=== PATIENT | male | born 1965 | race Asian ===

== ENCOUNTER 2018-07-06 11:34 | Inpatient (IN) | payer OTHER ==
[~2018-07-06] VITALS: Ht 172.7 cm; Wt 68.0 kg
[2018-07-06 11:34] VITALS: BP_SYST 148
[2018-07-06] MEDS ORDERED: ASPIRIN 81 MG TAB.CHEW PO ONE (11:45)
[2018-07-06] MEDS ORDERED: DIPHENHYDRAMINE INJ 50 MG/ML VIAL IVP ONE (11:45)
[2018-07-06] MEDS ORDERED: KETOROLAC TROMETHAMINE 15 MG VIAL IVP ONE (11:45)
[2018-07-06] MEDS ORDERED: LORazepam 2 MG/ML VIAL (FOR ER USE) IVP ONE (11:45)
[2018-07-06 11:54] LABS: BASOPHILS # (AUTO) 0.1 K/uL (0.0-0.2); BASOPHILS % (AUTO) 0.9 % (0.0-2.0); EOSINOPHILS # (AUTO) 0.1 K/uL (0.0-0.4); EOSINOPHILS % (AUTO) 0.7 % (0.0-4.0); HEMATOCRIT 44.3 % (36-54); HEMOGLOBIN 15.3 g/dL (14.0-18.0); LYMPHOCYTES # (AUTO) 1.2 K/uL (1.0-5.5); LYMPHOCYTES % (AUTO) 15.1 % (20.5-51.5); MEAN CORPUSCULAR HEMOGLOBIN 33 pg (27-31); MEAN CORPUSCULAR HGB CONC 34 % (32-36); MEAN CORPUSCULAR VOLUME 97 fL (79.0-98.0); MONOCYTES # (AUTO) 0.3 K/uL (0.0-1.0); MONOCYTES % (AUTO) 4.2 % (1.7-9.3); NEUTROPHILS # (AUTO) 6.4 K/uL (1.8-7.7); NEUTROPHILS % (AUTO) 79.1 % (40.0-70.0); PLATELET COUNT (AUTO) 296 K/uL (130-430); RED BLOOD CELL COUNT(AUTO) 4.59 MIL/uL (4.2-6.2); WHITE BLOOD COUNT (AUTO) 8.1 K/uL (4.8-10.8)
[2018-07-06 12:12] LABS: PROTHROMBIN TIME 9.9 SECS (9.5-12.5)
[2018-07-06 12:16] LABS: CREATININE 0.79 mg/dL (0.55-1.30); POTASSIUM 3.4 mmol/L (3.5-5.1)
[2018-07-06 12:20] LABS: ALBUMIN 4.5 g/dL (3.4-4.8); TOTAL BILIRUBIN 0.6 mg/dL (0.0-1.0)
[2018-07-06] MEDS ORDERED: fentaNYL CITRATE/PF 100 MCG/2 ML AMP IVP ONE (13:00)
[2018-07-06] MEDS ORDERED: LEVE500T53 PO (13:17)
[2018-07-06] MEDS ORDERED: TRAZ-123 PO (13:17)
[2018-07-06] MEDS ORDERED: BENZ1TAB7 PO (13:17)
[2018-07-06] MEDS ORDERED: CYCL-10 PO (13:17)
[2018-07-06] MEDS ORDERED: LORA1TAB PO (13:17)
[2018-07-06] MEDS ORDERED: GABA-531 PO (13:17)
[2018-07-06 13:41] VITALS: BP_SYST 142
[2018-07-06 16:00] VITALS: BP_SYST 108
[2018-07-06] MEDS: ALPRAZolam 0.25 MG TABLET PO PRN ×2 (16:22→23:09)
[2018-07-06] MEDS: NITROGLYCERIN 0.4 MG TAB.SUBL SL PRN ×3 (18:18→18:28)
[2018-07-06 20:00] VITALS: BP_SYST 112
[2018-07-06] MEDS: KETOROLAC TROMETHAMINE 15 MG VIAL IVP PRN (21:35)
[2018-07-06] MEDS ORDERED: QUEtiapine FUMARATE 100 MG TABLET PO ONE (22:15)
[2018-07-07 00:51] VITALS: BP_SYST 139
[2018-07-07] MEDS: KETOROLAC TROMETHAMINE 15 MG VIAL IVP PRN ×2 (03:23→11:51)
[2018-07-07 03:45] VITALS: BP_SYST 119
[2018-07-07] MEDS: ALPRAZolam 0.25 MG TABLET PO PRN ×2 (07:08→16:26)
[2018-07-07 07:55] VITALS: BP_SYST 118
[2018-07-07 08:08] LABS: BASOPHILS % (AUTO) 0.6 % (0.0-2.0); EOSINOPHILS # (AUTO) 0.1 K/uL (0.0-0.4); EOSINOPHILS % (AUTO) 1.4 % (0.0-4.0); HEMATOCRIT 42.6 % (36-54); HEMOGLOBIN 14.4 g/dL (14.0-18.0); LYMPHOCYTES # (AUTO) 1.5 K/uL (1.0-5.5); LYMPHOCYTES % (AUTO) 23.1 % (20.5-51.5); MEAN CORPUSCULAR HEMOGLOBIN 33 pg (27-31); MEAN CORPUSCULAR HGB CONC 34 % (32-36); MEAN CORPUSCULAR VOLUME 97 fL (79.0-98.0); MONOCYTES # (AUTO) 0.4 K/uL (0.0-1.0); MONOCYTES % (AUTO) 6.7 % (1.7-9.3); NEUTROPHILS # (AUTO) 4.5 K/uL (1.8-7.7); NEUTROPHILS % (AUTO) 68.2 % (40.0-70.0); PLATELET COUNT (AUTO) 225 K/uL (130-430); WHITE BLOOD COUNT (AUTO) 6.5 K/uL (4.8-10.8)
[2018-07-07 08:18] LABS: ANION GAP 9 (5-15); CALCIUM 9.1 mg/dL (8.4-11.0); CHLORIDE 104 mmol/L (98-107); GLUCOSE 108 mg/dL (70-99); POTASSIUM 3.6 mmol/L (3.5-5.1); SODIUM SERUM 140 mmol/L (136-145); UREA NITROGEN, BLOOD 12 mg/dL (8-21)
[2018-07-07 08:28] LABS: GFR AFRICAN AMERICAN 151 mL/min (>90)
[2018-07-07] MEDS ORDERED: ENOXAPARIN SODIUM 40 MG/0.4 ML SYRINGE SUBCUT SCH (09:00)
[2018-07-07] MEDS ORDERED: traMADol HCL HCL 50 MG TABLET (ULTRAM) PO PRN (10:00)
[2018-07-07 12:20] VITALS: BP_SYST 122
[2018-07-07 16:43] VITALS: BP_SYST 115
[2018-07-07 16:53] VITALS: BP_SYST 132
[2018-07-07] MEDS ORDERED: QUEtiapine FUMARATE 100 MG TABLET PO SCH (21:00)
== END 2018-07-07 18:17 | disposition short-term general hospital (02) | DRG 206 ==
LOC: SED 11:34 → STU 13:02
PROVIDERS: ADMIT Family Medicine; ATTEND Family Medicine
DX: M94.0 Chondrocostal junction syndrome [Tietze] (principal); F41.9 Anxiety disorder, unspecified; G40.909 Epilepsy, unspecified, not intractable, without status epilepticus; G25.81 Restless legs syndrome; F32.9 Major depressive disorder, single episode, unspecified; G24.9 Dystonia, unspecified; F29 Unspecified psychosis not due to a substance or known physiological condition; Z88.8 Allergy status to other drugs, medicaments and biological substances
CPT/HCPCS: 36415; 71045; 80048; 80053; 82550-TC; 83880; 84484; 85025; 85610-TC; 85730-TC; 87081; 93005; 96374; 96375; 99291; J1200; J1650; J1885; J2060; J3010

== ENCOUNTER 2018-07-28 08:35 | Inpatient (IN) | payer OTHER ==
[~2018-07-28] VITALS: Ht 172.7 cm; Wt 68.0 kg
[~2018-07-28 08:35] MED LIST: LORA1TAB PO; QUET200T5 PO
[2018-07-28 08:44] VITALS: BP_SYST 127
[2018-07-28] MEDS ORDERED: ASPIRIN 325 MG TABLET PO ONE (09:00)
[2018-07-28] MEDS ORDERED: LORazepam 1 MG TABLET PO ONE (09:00)
[2018-07-28] MEDS ORDERED: MORPHINE 4 MG/ML INJ. SYRINGE IVP ONE (09:30)
[2018-07-28] MEDS ORDERED: NITROGLYCERIN 1 INCH (GM) OINT. TP ONE (09:30)
[2018-07-28 09:35] LABS: BARBITURATE, URINE NEGATIVE (NEG <=200); BENZODIAZEPINE, URINE NEGATIVE (NEG <=150); CANNABINOID, URINE POSITIVE (NEG <=50); COCAINE, URINE NEGATIVE (NEG <=150); METHAMPHETAMINES SCREEN,URINE NEGATIVE (NEG <=500); OPIATE, URINE NEGATIVE (NEG <=100); PHENCYCLIDINE SCREEN,URINE NEGATIVE (NEG <=25); UR TRICYCLIC ANTIDEPRESSANTS NEGATIVE (NEG <=300); URINE AMPHETAMINE NEGATIVE (NEG <=500); URINE METHADONE NEGATIVE (NEG <=200); URINE OXYCODONE SCREEN NEGATIVE (NEG <=100); URINE PROPOXYPHENE SCREEN NEGATIVE (NEG <=300)
[2018-07-28 09:36] LABS: CREATININE 0.77 mg/dL (0.55-1.30); POTASSIUM 3.6 mmol/L (3.5-5.1)
[2018-07-28 09:40] LABS: PROTHROMBIN TIME 9.7 SECS (9.5-12.5)
[2018-07-28 09:41] LABS: ALBUMIN 3.6 g/dL (3.4-4.8); TOTAL BILIRUBIN 0.3 mg/dL (0.0-1.0)
[2018-07-28 10:50] VITALS: BP_SYST 140
[2018-07-28 11:15] LABS: HEMATOCRIT 39.1 % (36-54); HEMOGLOBIN 13.1 g/dL (14.0-18.0); LYMPHOCYTES % (AUTO) 24.3 % (20.5-51.5); MEAN CORPUSCULAR HEMOGLOBIN 33 pg (27-31); MEAN CORPUSCULAR HGB CONC 33 % (32-36); MEAN CORPUSCULAR VOLUME 97 fL (79.0-98.0); MONOCYTES % (AUTO) 6.9 % (1.7-9.3); NEUTROPHILS % (AUTO) 66.1 % (40.0-70.0); PLATELET COUNT (AUTO) 244 K/uL (130-430); RED BLOOD CELL COUNT(AUTO) 4.01 MIL/uL (4.2-6.2); RED CELL DISTRIBUTION WIDTH 12.5 % (9.0-15.0); WHITE BLOOD COUNT (AUTO) 5.8 K/uL (4.8-10.8)
[2018-07-28 11:16] LABS: EOSINOPHILS # (AUTO) 0.2 K/uL (0.0-0.4); EOSINOPHILS % (AUTO) 2.7 % (0.0-4.0); LYMPHOCYTES # (AUTO) 1.4 K/uL (1.0-5.5); MONOCYTES # (AUTO) 0.4 K/uL (0.0-1.0); NEUTROPHILS # (AUTO) 3.8 K/uL (1.8-7.7)
[2018-07-28] MEDS ORDERED: LORazepam 1 MG TABLET PO PRN (13:00)
[2018-07-28] MEDS: LORazepam 1 MG TABLET PO PRN ×2 (13:10→22:04)
[2018-07-28] MEDS ORDERED: ASPIRIN 81 MG TAB.CHEW PO ONE (13:15)
[2018-07-28] MEDS: NITROGLYCERIN 0.4 MG TAB.SUBL SL PRN ×3 (15:40→15:50)
[2018-07-28 16:42] VITALS: BP_SYST 127
[2018-07-28] MEDS ORDERED: QUEtiapine FUMARATE 200 MG TAB.SR.24H PO SCH ×2 (18:00→21:00)
[2018-07-28] MEDS ORDERED: IBUPROFEN 400 MG TABLET PO PRN (20:00)
[2018-07-28 20:55] VITALS: BP_SYST 134
[2018-07-28] MEDS: CYCLOBENZAPRINE HCL 10 MG TABLET (FLEXERIL) PO SCH (21:08)
[2018-07-28] MEDS: IBUPROFEN 800 MG TABLET PO PRN (21:09)
[2018-07-29 00:11] VITALS: BP_SYST 133
[2018-07-29 02:01] LABS: CKMB RELATIVE INDEX 1.7 (0.0-2.9); CREATINE KINASE MB 9.4 ng/mL (0-3.6)
[2018-07-29] MEDS: IBUPROFEN 800 MG TABLET PO PRN (08:03)
[2018-07-29] MEDS: CYCLOBENZAPRINE HCL 10 MG TABLET (FLEXERIL) PO SCH (08:26)
[2018-07-29] MEDS ORDERED: ASPIRIN 81 MG TAB.CHEW PO SCH (09:00)
[2018-07-29] MEDS ORDERED: ENOXAPARIN SODIUM 40 MG/0.4 ML SYRINGE SUBCUT SCH (09:00)
[2018-07-29] MEDS ORDERED: IBUPROFEN 800 MG TABLET PO PRN (09:15)
[2018-07-29] MEDS: LORazepam 1 MG TABLET PO PRN (09:20)
[2018-07-29 10:42] VITALS: BP_SYST 112
[2018-07-29 13:40] VITALS: BP_SYST 108
== END 2018-07-29 14:47 | disposition home or self-care (01) | DRG 206 ==
LOC: SED 08:35 → STU 10:05
PROVIDERS: ADMIT Family Medicine; ATTEND Family Medicine
DX: M94.0 Chondrocostal junction syndrome [Tietze] (principal); I20.9 Angina pectoris, unspecified; F41.9 Anxiety disorder, unspecified; F32.9 Major depressive disorder, single episode, unspecified; G40.909 Epilepsy, unspecified, not intractable, without status epilepticus; F12.90 Cannabis use, unspecified, uncomplicated; Z88.8 Allergy status to other drugs, medicaments and biological substances; Z79.899 Other long term (current) drug therapy
CPT/HCPCS: 36415; 71045; 80053; 80307; 82550-TC; 82553-TC; 83880; 84484; 85025; 85379; 85610-TC; 85730-TC; 87081; 96374; 99291; J1650; J2270

== ENCOUNTER 2018-09-17 21:20 | Emergency (ER) | payer OTHER ==
[~2018-09-17] VITALS: Ht 172.7 cm; Wt 77.1 kg
[2018-09-17 21:20] VITALS: BP_SYST 95
[2018-09-17] MEDS ORDERED: NACL 0.9% 1,000 ML IV ONE (22:15)
[2018-09-17] MEDS ORDERED: ASPIRIN 81 MG TAB.CHEW PO ONE (22:15)
[2018-09-17 22:23] LABS: BASOPHILS # (AUTO) 0.1 K/uL (0.0-0.2); BASOPHILS % (AUTO) 0.9 % (0.0-2.0); EOSINOPHILS # (AUTO) 0.1 K/uL (0.0-0.4); EOSINOPHILS % (AUTO) 1.4 % (0.0-4.0); HEMATOCRIT 40.9 % (36-54); HEMOGLOBIN 13.6 g/dL (14.0-18.0); LYMPHOCYTES # (AUTO) 1.6 K/uL (1.0-5.5); LYMPHOCYTES % (AUTO) 27.1 % (20.5-51.5); MEAN CORPUSCULAR HEMOGLOBIN 33 pg (27-31); MEAN CORPUSCULAR HGB CONC 33 % (32-36); MEAN CORPUSCULAR VOLUME 98 fL (79.0-98.0); MONOCYTES # (AUTO) 0.2 K/uL (0.0-1.0); MONOCYTES % (AUTO) 4.2 % (1.7-9.3); NEUTROPHILS # (AUTO) 3.9 K/uL (1.8-7.7); NEUTROPHILS % (AUTO) 66.4 % (40.0-70.0); PLATELET COUNT (AUTO) 234 K/uL (130-430); RED BLOOD CELL COUNT(AUTO) 4.18 MIL/uL (4.2-6.2); RED CELL DISTRIBUTION WIDTH 12.1 % (9.0-15.0); WHITE BLOOD COUNT (AUTO) 5.9 K/uL (4.8-10.8)
[2018-09-17 22:24] LABS: CALCIUM 8.8 mg/dL (8.4-11.0); CREATININE 0.68 mg/dL (0.55-1.30); POTASSIUM 3.3 mmol/L (3.5-5.1)
[2018-09-17 22:29] LABS: ALBUMIN 3.8 g/dL (3.4-4.8); INR 0.9 (0.80-1.20); PROTHROMBIN TIME 9.2 SECS (9.5-12.5); TOTAL BILIRUBIN 0.6 mg/dL (0.0-1.0)
[2018-09-17 22:29] LABS: BILIRUBIN,URINE NEGATIVE (NEGATIVE); BLOOD, URINE NEGATIVE (NEGATIVE); CLARITY/URINE CLEAR (CLEAR); COLOR,URINE YELLOW (YELLOW); GLUCOSE,URINE NEGATIVE (NEGATIVE); KETONES,URINE NEGATIVE (NEGATIVE); LEUKOCYTE ESTERASE ,URINE NEGATIVE (NEGATIVE); NITRITE, URINE NEGATIVE (NEGATIVE); PROTEIN URINE NEGATIVE (NEGATIVE); UROBILINOGEN,URINE 0.2 (0.2-1.0)
[2018-09-17] MEDS ORDERED: LORazepam 2 MG/ML VIAL (FOR ER USE) IVP ONE (23:30)
[2018-09-17 23:54] LABS: BARBITURATE, URINE NEGATIVE (NEG <=200); BENZODIAZEPINE, URINE POSITIVE (NEG <=150); CANNABINOID, URINE NEGATIVE (NEG <=50); COCAINE, URINE NEGATIVE (NEG <=150); METHAMPHETAMINES SCREEN,URINE NEGATIVE (NEG <=500); PHENCYCLIDINE SCREEN,URINE NEGATIVE (NEG <=25); UR TRICYCLIC ANTIDEPRESSANTS POSITIVE (NEG <=300); URINE AMPHETAMINE NEGATIVE (NEG <=500); URINE METHADONE NEGATIVE (NEG <=200)
[2018-09-17 23:55] LABS: OPIATE, URINE NEGATIVE (NEG <=100); URINE OXYCODONE SCREEN NEGATIVE (NEG <=100); URINE PROPOXYPHENE SCREEN NEGATIVE (NEG <=300)
[2018-09-18] MEDS ORDERED: NACL 0.9% 1,000 ML IV ONE
[2018-09-18] MEDS ORDERED: ACETAMINOPHEN 325 MG TABLET PO ONE (02:30)
[2018-09-18 04:10] VITALS: BP_SYST 117
== END 2018-09-18 04:10 | disposition home or self-care (01) ==
LOC: SED 21:20
DX: F41.0 Panic disorder [episodic paroxysmal anxiety] (principal); I95.9 Hypotension, unspecified; F32.9 Major depressive disorder, single episode, unspecified; Z88.8 Allergy status to other drugs, medicaments and biological substances
CPT/HCPCS: 36415; 71045; 80053; 80307; 81003; 82550; 83880; 84484; 85025; 85379; 85610; 85730; 93005; 96374; 99284; J2060; J7030